=== PATIENT | male | born 1985 | race Caucasian/White ===

== ENCOUNTER 2016-11-21 10:58 | Day surgery (SDC) | payer BC ==
[~2016-11-21] VITALS: Ht 182.9 cm; Wt 99.7 kg
[~2016-11-21 10:58] MED LIST: ADDERALL XR 3030 MG PO; ADDERALL30 MG PO; ALPRAZOLAM0.5 MG PO; COLACE100 MG PO; EFFEXOR XR150 MG PO; ELAVIL100 MG PO; INDERAL10 MG PO; KLONOPIN2 MG PO; LEXAPRO5 MG PO; LYRICA100 MG PO; MIRALAX17 GM PO; NO HOME MEDS; XANAX1 MG PO; ZUBSOLV 11.4-21 EACH SL
[2016-11-21 11:26] VITALS: BP 124/79
[2016-11-21] MEDS ORDERED: MOTRIN600 MG PO (15:08)
[2016-11-21] MEDS ORDERED: NORCO 5/3251 TABLET PO (15:08)
[2016-11-21 16:40] VITALS: BP 125/89
[2016-11-21 17:45] VITALS: BP 122/78
== END 2016-11-21 17:48 | disposition home or self-care (01) ==
LOC: SDC 10:58
PROC: 0WUF0JZ Supplement Abdominal Wall with Synthetic Substitute, Open Approach (ICD-10-PCS; principal; 2016-11-21)
DX: K43.6 Other and unspecified ventral hernia with obstruction, without gangrene (principal); I10 Essential (primary) hypertension; F42.9 Obsessive-compulsive disorder, unspecified; F98.8 Other specified behavioral and emotional disorders with onset usually occurring in childhood and adolescence; F17.210 Nicotine dependence, cigarettes, uncomplicated; Z82.49 Family history of ischemic heart disease and other diseases of the circulatory system; Z80.0 Family history of malignant neoplasm of digestive organs
CPT/HCPCS: C1781; J0690; J1100; J1170; J2250; J3010; S0020